=== PATIENT | female | born 1970 | race Two or more races ===

== ENCOUNTER 2020-11-23 17:51 | Emergency (ER) | payer OTHER ==
[~2020-11-23] VITALS: Ht 160 cm; Wt 81.6 kg
[2020-11-23] MEDS ORDERED: traMADol HCL 50 MG TAB PO ONE (18:30)
[2020-11-23 18:38] VITALS: BP 128/64
== END 2020-11-23 20:03 | disposition home or self-care (01) ==
LOC: ER 17:53
DX: M54.5 Low back pain (principal); R42 Dizziness and giddiness; R51.9 Headache, unspecified
CPT/HCPCS: 93005

== ENCOUNTER 2020-12-27 19:07 | Emergency (ER) | payer OTHER ==
[~2020-12-27] VITALS: Ht 154.9 cm; Wt 98.4 kg
[2020-12-27 19:09] VITALS: BP 155/95
== END 2020-12-28 01:08 | disposition left against medical advice (07) ==
LOC: ER 19:07
DX: R53.1 Weakness (principal); M79.18 Myalgia, other site; Z53.21 Procedure and treatment not carried out due to patient leaving prior to being seen by health care provider
CPT/HCPCS: 93005